=== PATIENT | female | born 1990 | race Caucasian/White ===

== ENCOUNTER 2017-03-10 16:23 | Inpatient (IN) | payer OTHER ==
[~2017-03-10] VITALS: Ht 177.8 cm; Wt 178.0 kg
[~2017-03-10 16:23] MED LIST: NAPROSYN500 MG PO; SYNTHROID25 MCG PO; ULTRAM50 MG PO
[2017-03-10 18:42] LABS: HEMATOCRIT 40.9 % (36.0-46.0); MCH 31.8 PG (29.0-34.0); MCV 90.9 FL (83-99); MEAN PLAT.VOLUME 8.9 uM^3 (9.5-12.4); PLATELET COUNT 236 K/uL (156-360); RBC DIS.WIDTH-CV 12.4 % (11.8-14.6); RBC DIS.WIDTH-SD 40.9 % (39-53); WHITE BLOOD COUNT 10.7 K/uL (4.1-10.2)
[2017-03-10 18:56] LABS: CHLORIDE 106 mEq/L (99-109); POTASSIUM 4.4 mEq/L (3.7-5.4); SODIUM 136 mEq/L (136-147)
[2017-03-10 18:59] LABS: GLUCOSE 203 mg/dL (70-99)
[2017-03-10 19:00] LABS: ANION GAP 12 MEQ/L (2-14); TOTAL BILIRUBIN 1.1 mg/dL (0.0-1.0)
[2017-03-10 19:02] LABS: ALKALINE PHOSPHATASE 32 IU/L (3-129); GFR ESTIMATE (CALCULATED) > 59 mL/min/
[2017-03-10 19:03] LABS: UREA NITROGEN (BUN) 8 mg/dL (9-23)
[2017-03-10] MEDS ORDERED: METFORMIN HCL500 M4 PO (19:45)
[2017-03-10] MEDS ORDERED: METFORMIN HCL1000 MG PO (23:20)
[2017-03-10] MEDS ORDERED: SYNTHROID100 MCG PO (23:22)
[2017-03-10] MEDS ORDERED: VITAMIN D31000 UNI2 PO (23:25)
[2017-03-10] MEDS ORDERED: GLIMEPIRIDE1 MG PO (23:25)
[2017-03-10] MEDS ORDERED: VENTOLIN HFA18 GM IH (23:26)
[2017-03-11 02:42] VITALS: BP 147/85
[2017-03-11 05:36] LABS: HEMATOCRIT 39.8 % (36.0-46.0); MCH 31.4 PG (29.0-34.0); MCHC 34.4 G/DL (30.0-36.0); MCV 91.3 FL (83-99); MEAN PLAT.VOLUME 8.8 uM^3 (9.5-12.4); PLATELET COUNT 258 K/uL (156-360); RBC DIS.WIDTH-CV 12.5 % (11.8-14.6); RBC DIS.WIDTH-SD 41.7 % (39-53); RED BLOOD COUNT 4.36 M/uL (3.80-5.20); WHITE BLOOD COUNT 9.5 K/uL (4.1-10.2)
[2017-03-11 05:55] LABS: ANION GAP 10 MEQ/L (2-14); CHLORIDE 104 MEQ/L (99-109); GFR ESTIMATE (CALCULATED) > 59 mL/min/; POTASSIUM 4.3 MEQ/L (3.7-5.4); SAMPLE HEMOLYSIS CHECK 0; SAMPLE ICTERIC CHECK 0; SAMPLE LIPEMIA CHECK 0; SODIUM 137 MEQ/L (136-147); UREA NITROGEN (BUN) 6 mg/dL (9-23)
[2017-03-11 05:58] LABS: GLUCOSE 112 mg/dL (70-99)
[2017-03-11 07:05] VITALS: BP 138/87
[2017-03-11 07:05] LABS: POINT-OF-CARE METER ID UU14149397
[2017-03-11 10:55] VITALS: BP 132/60
[2017-03-11 12:15] LABS: POINT-OF-CARE METER ID UU14149397
[2017-03-11 15:20] VITALS: BP 140/80; BP 170/84
[2017-03-11 15:35] LABS: POINT-OF-CARE METER ID UU14188577
[2017-03-11 20:32] LABS: POINT-OF-CARE METER ID UU13113675
[2017-03-11 21:38] VITALS: BP 164/72
[2017-03-11 23:52] VITALS: BP 133/60
[2017-03-12 03:30] VITALS: BP 129/63
[2017-03-12 04:05] VITALS: BP 138/63
[2017-03-12 05:46] LABS: EOSINOPHIL (%) 0.1 % (0-5); HEMATOCRIT 36.4 % (36.0-46.0); IMMATURE GRANULOCYTE (%) 0.4 % (0.0-0.7); INSTRUMENT ABS NEUTROPHIL CT 8.1 K/uL; LYMPHOCYTE COUNT 0.8 K/uL (1.0-2.8); MCHC 33.2 G/DL (30.0-36.0); MCV 93.3 FL (83-99); MEAN PLAT.VOLUME 8.9 uM^3 (9.5-12.4); MONOCYTE (%) 8.1 % (3-12); MONOCYTE COUNT 0.8 K/uL (0-0.8); NEUTROPHIL (%) 82.9 % (45-76); NEUTROPHIL COUNT 8.1 K/uL (1.8-6.4); PLATELET COUNT 237 K/uL (156-360); RBC DIS.WIDTH-SD 44.1 % (39-53); WHITE BLOOD COUNT 9.8 K/uL (4.1-10.2)
[2017-03-12 06:02] LABS: ANION GAP 8 MEQ/L (2-14); CHLORIDE 99 MEQ/L (99-109); GFR ESTIMATE (CALCULATED) > 59 mL/min/; GLUCOSE 130 mg/dL (70-99); POTASSIUM 4.6 MEQ/L (3.7-5.4); SAMPLE HEMOLYSIS CHECK 0; SAMPLE ICTERIC CHECK 0; SAMPLE LIPEMIA CHECK 0; SODIUM 136 MEQ/L (136-147); UREA NITROGEN (BUN) 8 mg/dL (9-23)
[2017-03-12 08:00] VITALS: BP 124/57
[2017-03-12 17:32] LABS: POINT-OF-CARE METER ID UU14188577
[2017-03-12 19:39] VITALS: BP 121/55
[2017-03-12 21:50] VITALS: BP 130/61
[2017-03-12 23:04] VITALS: BP 139/62
[2017-03-13 05:33] LABS: EOSINOPHIL (%) 0.3 % (0-5); HEMATOCRIT 35.2 % (36.0-46.0); IMMATURE GRANULOCYTE (%) 0.7 % (0.0-0.7); IMMATURE GRANULOCYTE COUNT 0.1 K/uL; INSTRUMENT ABS NEUTROPHIL CT 8.8 K/uL; MCH 31.6 PG (29.0-34.0); MCHC 33.5 G/DL (30.0-36.0); MCV 94.1 FL (83-99); MEAN PLAT.VOLUME 8.9 uM^3 (9.5-12.4); MONOCYTE (%) 7.9 % (3-12); MONOCYTE COUNT 0.9 K/uL (0-0.8); NEUTROPHIL (%) 81.8 % (45-76); NEUTROPHIL COUNT 8.8 K/uL (1.8-6.4); PLATELET COUNT 224 K/uL (156-360); RBC DIS.WIDTH-CV 12.9 % (11.8-14.6); RBC DIS.WIDTH-SD 44.6 % (39-53); RED BLOOD COUNT 3.74 M/uL (3.80-5.20); WHITE BLOOD COUNT 10.7 K/uL (4.1-10.2)
[2017-03-13 06:00] LABS: ANION GAP 9 MEQ/L (2-14); CHLORIDE 98 MEQ/L (99-109); GFR ESTIMATE (CALCULATED) > 59 mL/min/; GLUCOSE 135 mg/dL (70-99); POTASSIUM 4.2 MEQ/L (3.7-5.4); SAMPLE HEMOLYSIS CHECK 0; SAMPLE ICTERIC CHECK 0; SAMPLE LIPEMIA CHECK 0; SODIUM 137 MEQ/L (136-147); UREA NITROGEN (BUN) 9 mg/dL (9-23)
[2017-03-13 06:48] LABS: POINT-OF-CARE METER ID UU14188577
[2017-03-13 07:42] LABS: INTACT PARATHYROID HORMONE 71 pg/mL (10-69)
[2017-03-13 08:00] VITALS: BP 108/56; BP 122/72
[2017-03-13 16:18] VITALS: BP 111/55
[2017-03-13 19:53] VITALS: BP 133/61
[2017-03-14 03:09] VITALS: BP 143/64
[2017-03-14 07:00] VITALS: BP 133/66
[2017-03-14 11:00] VITALS: BP 114/88
[2017-03-14 12:02] LABS: POINT-OF-CARE METER ID UU14188577
[2017-03-14 15:49] VITALS: BP 111/57
[2017-03-14 23:46] VITALS: BP 129/71
[2017-03-15 07:51] VITALS: BP 117/59
[2017-03-15 15:59] VITALS: BP 133/73
[2017-03-16 00:43] VITALS: BP 116/54
[2017-03-16 07:56] VITALS: BP 122/58
[2017-03-16 11:29] LABS: POINT-OF-CARE METER ID UU14188577
[2017-03-16 15:31] VITALS: BP 129/58
[2017-03-17 01:06] VITALS: BP 118/56
[2017-03-17 07:32] VITALS: BP 116/68
[2017-03-17 11:45] LABS: POINT-OF-CARE METER ID UU14149397
[2017-03-17 14:41] VITALS: BP 118/59
[2017-03-17 15:17] VITALS: BP 130/60
[2017-03-17 17:02] LABS: POINT-OF-CARE METER ID UU14149397
[2017-03-17 23:44] VITALS: BP 121/59
[2017-03-18 08:05] VITALS: BP 121/68
[2017-03-18 16:17] VITALS: BP 125/58
[2017-03-18 16:55] LABS: POINT-OF-CARE METER ID UU14149397
[2017-03-18 21:25] LABS: POINT-OF-CARE METER ID UU14149397
[2017-03-18 23:46] VITALS: BP 126/95
[2017-03-19 07:20] VITALS: BP 143/66
[2017-03-19] MEDS ORDERED: LOVENOX30 MG/0.3 SC (13:20)
[2017-03-19] MEDS ORDERED: CITALOPRAM HBR20 MG PO (13:21)
[2017-03-19] MEDS ORDERED: MAG-AL PLUS SUS30 ML PO (13:22)
[2017-03-19] MEDS ORDERED: METOCLOPRAMIDE10 MG PO (13:22)
[2017-03-19 15:30] VITALS: BP 117/57
[2017-03-19] MEDS ORDERED: ENDOCET 5-3251 EACH PO (16:26)
[2017-03-19 16:27] LABS: POINT-OF-CARE METER ID UU14149397
[2017-03-20 06:21] LABS: POINT-OF-CARE METER ID UU14188577
[2017-03-20 07:51] VITALS: BP 106/55
== END 2017-03-20 09:28 | DRG 493 ==
LOC: EME 16:23 → 3EAST 23:55 → EDOF 23:55 → 3EAST 03-11 02:04
PROVIDERS: Family Medicine; Family Medicine Sports Medicine; Nurse Practitioner Family
PROC: 0QSG06Z Reposition Right Tibia with Intramedullary Internal Fixation Device, Open Approach (ICD-10-PCS; principal; 2017-03-11)
DX: S82.251D Displaced comminuted fracture of shaft of right tibia, subsequent encounter for closed fracture with routine healing (principal); S82.451D Displaced comminuted fracture of shaft of right fibula, subsequent encounter for closed fracture with routine healing; E66.01 Morbid (severe) obesity due to excess calories; Z68.41 Body mass index [BMI] 40.0-44.9, adult; J45.909 Unspecified asthma, uncomplicated; K21.9 Gastro-esophageal reflux disease without esophagitis; K58.9 Irritable bowel syndrome, unspecified; E11.9 Type 2 diabetes mellitus without complications; E03.9 Hypothyroidism, unspecified; I10 Essential (primary) hypertension; G47.30 Sleep apnea, unspecified; F43.21 Adjustment disorder with depressed mood; G47.10 Hypersomnia, unspecified; Z91.19 Patient's noncompliance with other medical treatment and regimen
CPT/HCPCS: 73590; 73610; 73630; 73700; 76000; 80048; 80053; 82306; 82948; 83970; 85025; 85027; 93005; 94799; 97530 GP; 99202; 99281; 99285; C1713; J0690; J1170; J1650; J1815; J2250; J2270; J2405; J2765; J3010; J7050; J7120